=== PATIENT | male | born 1965 | race Caucasian/White ===

== ENCOUNTER 2020-04-01 12:21 | Emergency (ER) | payer BC ==
[~2020-04-01] VITALS: Ht 167.6 cm; Wt 68.2 kg
[2020-04-01] MEDS ORDERED: lisinopril 10 MG tablet PO ONE (14:10)
[2020-04-01] MEDS ORDERED: LISI40TA4 PO (14:11)
--- NOTE | 2020-04-01 15:12 | NUR ---
PT. BP STILL ELEVATED, NOTIFIED, OKAYED HIM TO GO HOME WITH NEW RX.
[2020-04-01 15:13] VITALS: BP 183/128
== END 2020-04-01 15:14 | disposition home or self-care (01) ==
LOC: ER 12:22
DX: I10 Essential (primary) hypertension (principal); R04.0 Epistaxis; Z72.89 Other problems related to lifestyle; Z79.899 Other long term (current) drug therapy
CPT/HCPCS: 93005; 99283

== ENCOUNTER 2020-04-02 11:31 | Emergency (ER) | payer BC ==
[~2020-04-02] VITALS: Ht 167.6 cm; Wt 71.0 kg
[~2020-04-02 11:31] MED LIST: LISI40TA4 PO
[2020-04-02 13:40] VITALS: BP 121/74
== END 2020-04-02 14:59 | disposition home or self-care (01) ==
LOC: ER 11:32
DX: R04.0 Epistaxis (principal); I10 Essential (primary) hypertension; Z72.89 Other problems related to lifestyle; Z79.899 Other long term (current) drug therapy
CPT/HCPCS: 99281